=== PATIENT | male | born 1950 | race Caucasian/White ===

== ENCOUNTER 2016-07-19 14:09 | Emergency (ER) | payer OTHER ==
[2016-07-19 14:24] VITALS: BP 125/70
--- NOTE | 2016-07-19 15:46 | UC ---
Rectal Pain HPI - HPI Summary HPI Summary: PT HAS HAD 3-4 EPISODES OF WATERY DIARRHEA DAILY FOR THE PAST WEEK. SX ARE NOW ALMOST COMPLETELY RESOLVED BUT FOR THE PAST 2 DAYS HAS HAD INCREASED PAIN AND BLEEDING FROM HEMORRHOIDS. - History Of Current Complaint Chief Complaint: UCGU Stated Complaint: PERSONAL ISSUE Time Seen by Provider: 07/19/16 15:32 Hx Obtained From: Patient Onset/Duration: Gradual Onset, Lasting Days, Still Present Timing: Constant Severity Initially: Moderate Severity Currently: Moderate Pain Intensity: 7 Pain Scale Used: 0-10 Numeric Location Of Pain: Anal Character: Sharp, Burning Aggravating Factor(s): Bowel Movement, Sitting Alleviating Factor(s): Nothing Associated Signs And Symptoms: Positive: Rectal Bleeding, External Hemorrhoid Related History: Hemorrhoids - Allergies/Home Medications Allergies/Adverse Reactions: Allergies Allergy/AdvReac Type Severity Reaction Status Date / Time No Known Allergies Allergy Verified 01/17/14 17:21 PMH/Surg Hx/FS Hx/Imm Hx Endocrine History Of: Denies: Diabetes, Thyroid Disease Cardiovascular History Of: Denies: Cardiac Disorders, Hypertension Respiratory History Of: Reports: Asthma - childhood Denies: COPD GI/ History Of: Denies: Ulcer Other History Of: Negative For: Anticoagulant Therapy - Surgical History Surgical History: None - Family History Known Family History: Positive: Hypertension - Social History Alcohol Use: Occasionally Substance Use Type: None Smoking Status (MU): Former Smoker Review of Systems Constitutional: Negative Respiratory: Negative Cardiovascular: Negative Gastrointestinal: Diarrhea, Other - BLEEDING HEMORRHOIDS All Other Systems Reviewed And Are Negative: Yes Physical Exam Triage Information Reviewed: Yes Appearance: Well-Appearing, Well-Nourished, Pain Distress - MODERATE Vital Signs: Initial Vital Signs Temp 98.0 F 07/19/16 14:20 Pulse 65 07/19/16 14:20 Resp 16 07/19/16 14:20 BP 125/70 07/19/16 14:20 Pulse Ox 98 07/19/16 14:20 Vital Signs Reviewed: Yes Eyes: Positive: Conjunctiva Clear ENT: Positive: Hearing grossly normal Neck: Positive: Supple Respiratory: Positive: No respiratory distress, No accessory muscle use Cardiovascular: Positive: Pulses Normal Abdomen Description: Positive: Soft Musculoskeletal: Positive: No Edema Neurological: Positive: Alert Psychological: Positive: Age Appropriate Behavior Skin: Negative: rashes UC Physical Exam Vital Signs On Initial Exam: Initial Vitals Temp Pulse Resp BP Pulse Ox 98.0 F 65 16 125/70 98 07/19/16 14:20 07/19/16 14:20 07/19/16 14:20 07/19/16 14:20 07/19/16 14:20 - Rectal Exam Rectal Exam: Hemorrhoids - GRADE IV PROLAPSED HEMORRHOIDS. BLEEDING. NOT REDUCIBLE. TENDER. Rectal Pain Course/Dx - Differential Dx/Diagnosis Provider Diagnoses: GRADE 4 PROLAPSED, BLEEDING HEMORRHOIDS - Physician Notifications Discussed Patient Care With: DR. LR (GENERAL SURGERY) Time Discussed With Above Provider: 16:00 - OFFICE F/U [facility] OR GO TO ER IF PAIN INTOLERABLE Discharge - Discharge Plan Condition: Stable Disposition: HOME Prescriptions: Acetaminop/Codeine 30 MG TAB* [Tylenol/Codeine 30 MG TAB*] 1 - 2 tab PO Q6H PRN #12 tab MDD 8 PRN Reason: Pain Patient Education Materials: Hemorrhoids (ED) Forms: *Work Release Referrals: Rebeca Cuevas MD [Primary Care Provider] - If Needed Oscar De Leon MD [Medical Doctor] - (APPT TOMORROW AT 8:45AM) Additional Instructions: I HAVE MADE AN APPOINTMENT FOR YOU TOMORROW AT 8:45AM WITH DR. DE LEON OF GENER[facility] SUR[facility]ERY. PLEASE ARRIVE A FEW MINUTES EARLY TO CHECK-IN. GO TO THE ER IF PAIN BECOMES INTOLERABLE. SIT[facility] BATHS
== END 2016-07-19 16:23 | disposition home or self-care (01) ==
LOC: UCEAST 14:09
DX: K64.3 Fourth degree hemorrhoids (principal); Z87.891 Personal history of nicotine dependence
CPT/HCPCS: 99212; G0463